=== PATIENT | female | born 1980 | race Caucasian/White ===

== ENCOUNTER 2024-12-29 09:28 | Emergency (ER) | payer BC, SELFPAY ==
--- NOTE | ~2024-12-29 | XR_ITS ---
[id number] Indication: neck pain Comparison: None Findings: The vertebral heights are intact. No fracture or subluxation. Moderate loss of disc height at C5-6 and C6-7. Soft tissues unremarkable Impression: No acute abnormality. Reviewed, dictated and finalized at location A. Impression: No acute abnormality.
--- NOTE | ~2024-12-29 | XR_ITS ---
EXAMINATION: XR chest 2V, 12/29/2024 10:05 CDT HISTORY: pain in left scapula COMPARISON: No comparisons available. Technique: 2 views obtained. Findings: The lungs are clear, no effusion. No pneumothorax. Heart is normal size. Mediastinal and hilar contours are within normal limits. Bony thorax no acute abnormality. Impression: No acute cardiopulmonary abnormality. Reviewed, dictated and finalized at location A. Impression: No acute cardiopulmonary abnormality.
[2024-12-29 09:42] VITALS: BP 168/86; PULSE 82; RESP 16; TEMP 36.1; O2SAT 100
--- NOTE | 2024-12-29 10:02 | ED_ITS ---
HPI - Extremity Problem General Chief complaint: Extremity Problem,Nontraumatic Stated complaint: L SHOULDER PAIN Source: patient Mode of arrival: ambulatory Limitations: no limitations History of Present Illness HPI Narrative: Patient presents for evaluation of pain in the left scapular region for last 10 days. She indicates she woke from sleep with her symptoms. Two days ago she had acute worsening of her pain. She saw her primary care provider that day and was given a prescription for Flexeril, which has not helped. She has also tried Tylenol and ibuprofen without improvement. She feels like pain is radiating from her neck down through her left upper extremity. She rates her pain 10/10 severity. Movement makes her symptoms worse. No history of similar symptoms. Denies any cough or shortness of breath. Related Data Home Medications ?Medication ?Instructions ?Recorded ?Confirmed ?Last Taken ?Type cyclobenzaprine 10 mg tablet mg 12/29/24 Unknown Hist ory Allergies Allergy/AdvReac Type Severity Reaction Status Date / Time No Known Allergies Allergy Unverified 09/22/15 17:35 Review of Systems Review of Systems: CONSTITUTIONAL: Denies fever, chills, or sweats. EYES: Denies visual changes, redness, or discharge. ENT: Denies rhinorrhea, congestion, sore throat, or otalgia. CARDIOVASCULAR: Denies chest pain, palpitations, or edema. RESPIRATORY: Denies cough or dyspnea. GASTROINTESTINAL: Denies abdominal pain, nausea, vomiting, or diarrhea. GENITOURINARY: Denies dysuria or hematuria. SKIN: Denies rash or itching. MUSCULOSKELETAL: Reports left scapular pain. Reports neck pain with radiation into the left upper extremity. NEUROLOGIC: Denies headache, numbness, dizziness, or weakness. PSYCHIATRIC: Denies anxiety or depression. [facility] Past Medical History Medical History Migraines, neuralgic Surgical History Surgical History History of cholecystectomy Family History Family History Father Hypertension Grandparent Family history of primary malignant neoplasm of liver Social History Social History Second hand tobacco smoke exposure: No Alcohol intake: current Living arrangements: with family Gender identity (if verbalized by the patient): Female Spiritual care concerns: No Exam Narrative: GENERAL: Well-appearing, well-nourished, and in no acute distress. HEAD: Normocephalic, atraumatic. EYES: PERRLA and EOMI. ENT: Nares clear, no rhinorrhea or epistaxis. Mucous membranes moist. Oropharynx without tonsillar hypertrophy exudate or other lesions. Bilateral TMs pearly [place] nonbulging NECK: Supple. No adenopathy or masses. No carotid bruits or JVD. there is tenderness in the posterior neck. BACK: There is tenderness over the left scapula. CHEST: Clear to auscultation. No respiratory distress. No wheezes rales or rhonchi HEART: Regular rate and rhythm. No murmur heard. Normal peripheral pulses. ABDOMEN: Soft, nontender, nondistended, normal active bowel sounds. EXTREMITIES: Normal range of motion. No edema. SKIN: Warm, dry, no rash. NEURO: No focal deficits. Alert and oriented x3. PSYCH: Normal mood and affect. Course Course Emergency Course: This is a 44-year-old female who presented for evaluation of neck and scapula pain. x-rays negative for fracture. Exam consistent with cervical radiculopathy. She was given Toradol here without much improvement. She has tried Tylenol and ibuprofen at home. Will discharge with Medrol Dosepak and a small quantity of hydrocodone. She should follow up with primary care provider to determine whether additional imaging or intervention is clinically indicated. Advised on RICE therapy. Go to the ER for worsening symptoms. Pt in agreement with plan of care. Level of Care: Express Care Visit Vital Signs Vital signs: Vital Signs Temperature 36.1 C L 12/29/24 09:42 Pulse Rate 82 12/29/24 09:42 Respiratory Rate 16 12/29/24 09:42 Blood Pressure 168/86 H 12/29/24 09:42 Pulse Oximetry 100 12/29/24 09:42 Temperature 36.1 C L 12/29/24 09:42 Pulse Rate 82 12/29/24 09:42 Respiratory Rate 16 12/29/24 09:42 Blood Pressure 168/86 H 12/29/24 09:42 Pulse Oximetry 100 12/29/24 09:42 MDM - Extremity (Nontraumatic) Imaging Data Radiologist's impression: EXAMINATION: XR chest 2V, 12/29/2024 10:05 CDT HISTORY: pain in left scapula COMPARISON: No comparisons available. Technique: 2 views obtained. Findings: The lungs are clear, no effusion. No pneumothorax. Heart is normal size. Mediastinal and hilar contours are within normal limits. Bony thorax no acute abnormality. Impression: No acute cardiopulmonary abnormality. [id number] Indication: neck pain Comparison: None Findings: The vertebral heights are intact. No fracture or subluxation. Moderate loss of disc height at C5-6 and C6-7. Soft tissues unremarkable Impression: No acute abnormality. Discharge Plan Discharge Clinical Impression: Cervical radiculopathy Patient Disposition: Home Condition: Stable Instructions: Antibiotic Form, Cervical Radiculopathy (ED) Patient Language: [place] Prescriptions: New methylprednisolone [Medrol ([place])] 4 mg tablets,dose pack See Rx Instructions .ROUTE .COMPLEX Qty: 21 0RF Rx Instructions: for 6 days hydrocodone-acetaminophen 5-325 mg tablet 1 - 2 tablet PO Q6H PRN (Reason: pain) Qty: 12 0RF No Action cyclobenzaprine 10 mg tablet Follow-up/Referrals: Lico,Natalia Sharpe MD [Primary Care Provider, Internal Medicine] Time of Disposition: 10:53
[2024-12-29] MEDS: KETOROLAC (*BKC) 60 MG/2 ML VIAL IM (10:19)
== END 2024-12-29 11:04 | disposition home or self-care (01) ==
PROVIDERS: Emergency Provider Nurse Practitioner; PCP Internal Medicine
DX: M54.12 Radiculopathy, cervical region (principal)
CPT/HCPCS: 71046; 72040; 96372; 99214; G0463; J1885